=== PATIENT | female | born 1955 | race Caucasian/White ===

== ENCOUNTER 2018-03-25 01:16 | Inpatient (IN) | payer OTHER ==
[~2018-03-25] VITALS: Ht 162.6 cm; Wt 65.8 kg
[~2018-03-25 01:16] MED LIST: ABILIFY30 M1 PO; PANTOPRAZOLE SO40 M1 PO; PEPCID20 M1 PO; PREDNISONE5 M1 PO; PROAIR HFA8.5 GM INH; SEROQUEL200 M1 PO; THEOCHRON300 MG PO
[2018-03-25] MEDS ORDERED: ADVAIR 250-501 EACH INH (06:36)
[2018-03-25] MEDS ORDERED: KLONOPIN1 M1 PO (06:37)
--- NOTE | 2018-03-25 08:57 | Admission Core Measures ---
Acute Coronary Syndrome (CM) ACS Core Measures Acute Coronary Syndrome Diagnosis No Congestive Heart Failure (NEW) CHF Core Measures Congestive Heart Failure Diagnosis No Cerebrovascular Accident (NEW) CVA Core Measures CVA/TIA Diagnosis No Venous Thromboembolism VTE Core Allyssa (View Protocol) VTE Risk Factors Surgery No Mechanical VTE Prophylaxis d/t N/A MechProphylax Ordered No VTE Pharm Prophylaxis d/t NA PharmProphylax ordered Problem List As ranked by this Provider includes Assessment & Plan 1. Unilateral primary osteoarthritis, right hip HOME MEDS Home Med List Albuterol Sulfate (Proair Hfa) 90 MCG HFA.AER.AD 2 PUF INH AD PRN ASTHMA ( Reported) Aripiprazole (Abilify) 30 MG TABLET 1 TAB PO DAILY MENTAL HEALTH (Reported) Clonazepam (Klonopin) 1 MG TABLET 1 TAB PO TWICE DAILY PSYCH (Reported) Famotidine (Pepcid) 20 MG TABLET 1 TAB PO DAILY GI (Reported) Fluticasone/Salmeterol (Advair 250-50 Diskus) 250 MCG-50 MCG/DOSE BLST.W.DEV 1 INH INH DAILY RESPIRATORY (Reported) Pantoprazole Sodium 40 MG TABLET.DR 1 TAB PO DAILY GI (Reported) Prednisone 5 MG TABLET 1 TAB PO DAILY ASTHMA (Reported) Quetiapine Fumarate (Seroquel) 200 MG TABLET 1 TAB PO DAILY MENTAL HEALTH ( Reported) Theophylline Anhydrous (Theochron) 300 MG TAB.ER.12H 1 TAB PO TID ASTHMA ( Reported)
--- NOTE | 2018-03-25 09:01 | Patient Discharge Instructions ---
Discharge Instructions General Discharge Information You were seen/treated for: RIGHT HIP PAIN You had these procedures: RIGHT TOTAL HIP REPLACEMENT Watch for these problems: FEVER OVER 100.4 REDNESS AROUND WOUND DRAINAGE FROM WOUND UNABLE TO BEAR WEIGHT ON RIGHT LEG Call Surgeon to remove: WOUND CHECK No bath, but you may shower: Yes Other wound care: KEEP WOUND CLEAN AND DRY Special Instructions: Follow-up with Dr. Thacker in 6 weeks. Call the office with any concerns of fever greater than 101.5. Large amounts of discharge or drainage from the wound or inability to bear weight on your operative side. The visiting nurse will remove your sutures/percy in approximately 2 weeks' time if applicable You may weight-bear as tolerated. Activity as tolerated. Keep the dressing dry as possible, you may shower with the dressing in place however, do not take a bath or submerge the wound in water as this will increase her chance of infection. Change the dressings after the shower. You may use dry gauze and tape or large Band-Aids Do not apply any ointments to the wound. Due to a risk of blood clots you'll need to be on aspirin 325 mg twice a day for the next 3 weeks. Take pain medication as directed. Apply ice as needed for 20 minutes every hour for the first few days. Please take Colace and/or MiraLAX [id number] to avoid constipation while you're on narcotic pain medication. Diet Continue normal diet: Yes Activity Activity Limited to: Weight bear as tolerated (WITH ROLLING WALKER) Acute Coronary Syndrome Inclusion Criteria At DC or during hospital stay patient has or had the following: ACS DIAGNOSIS No Discharge Core Measures Meds if any: Prescribed or Continued at Discharge Meds if any: NOT Prescribed or Continued at Discharge Congestive Heart Failure Inclusion Criteria At DC or during hospital stay patient has or had the following: CHF DIAGNOSIS No Discharge Core Measures Meds if any: Prescribed or Continued at Discharge Meds if any: NOT Prescribed or Continued at Discharge Cerebrovascular accident Inclusion Criteria At DC or during hospital stay patient has or had the following: CVA/TIA Diagnosis No Discharge Core Measures Meds if any: Prescribed or Continued at Discharge Meds if any: NOT Prescribed or Continued at Discharge Venous thromboembolism Inclusion Criteria VTE Diagnosis No VTE Type NONE VTE Confirmed by (Test) NONE Discharge Core Measures - Per Current guidelines, there needs to be overlap - treatment for the first 5 days of Warfarin therapy. - If discharged on Warfarin prior to 5 days of - overlap therapy, the patient will need to be - assessed for post discharge needs including - *Post discharge parental anticoagulation - *Warfarin and/or parental anticoagulation education - *Follow up date to check INR post discharge At least 5 days overlap therapy as Inpatient No Meds if any: Prescribed or Continued at Discharge Note: Overlap Therapy is Warfarin and Anticoagulant Meds if any: NOT Prescribed or Continued at Discharge
[2018-03-25] MEDS ORDERED: DILAUDID2 M1 PO (09:04)
[2018-03-25] MEDS ORDERED: ASPIRIN EC325 M2 PO (09:04)
[2018-03-25] MEDS ORDERED: COLACE100 M1 PO (09:04)
[2018-03-25] MEDS ORDERED: MIRALAX17 G1 PO (09:04)
--- NOTE | 2018-03-25 09:37 | Surgical Discharge Summary ---
Visit Information Visit Dates Admission Date: 03/25/18 Discharge Date: 03/26/18 History of Present Illness Chief Complaint: RIGHT HIP PAIN Medical History Isolation History: Standard Surgical History Pertinent Surgical History: non-contributory Review of Systems: PER [facility] Hospital Course Course Attending Physician: Andrea Gould MD Primary Care Physician: Ronda Johnson MD Hospital Course: PT PRESENTED TO [facility] ON 03/25/18 FOR ELECTIVE RIGHT TOTAL HIP REPLACEMENT BY DR. GOULD. PT TOLERATED PRECEDURE WELL. POST-OPERATIVELY SHE TOLERATED A REGULAR DIET, WAS VOIDING SPONTANEOUSLY, WAS CLEARED BY PHYSICAL THERAPY AND HER PAIN WAS UNDER CONTROL WITH ORAL MEDICATION. SHE WAS GIVEN PRESCRIPTIONS FOR PAIN, DVT PROPHYLAXIS AND CONSTIPATION. ON DISCHARGE AND WAS INSTRUCTED TO FOLLOW-UP WITH DR GOULD IN 6 WEEKS AND INSTRUCTED TO CALL HIS OFFICE WITH ANY QUESTIONS OR CONCERNS. DISCHARGE INSTRUCTIONS WERE REVIEWED WITH THE PATIENT. Allergies: Coded Allergies: Penicillins (Severe, THROAT ITCHY AND LIPS ITCH AND SWELL, ANAPHYAXIS 03/25/18) morphine (Intermediate, N/V 03/25/18) animal dander (TRIGGERS ASTHMA AND GET SICK 03/22/18) nut - unspecified (ANAPHYLAXIS 03/22/18) tetracycline (ANAPHYLAXIS 03/22/18) Disposition Summary Disposition Principal Diagnosis: RIGHT HIP OA Additional Diagnosis: SP RIGHT DORA Discharge Disposition: home health services Discharge Instructions General Discharge Information Code Status: Full Code Patient's Diet: REGULAR Patient's Activity: WBAT WITH ROLLING WALKER Follow-Up Instructions/Appts: FU WITH DR GOULD IN 6 WEEKS Medications at Discharge Discharge Medications: Continue taking these medications: Theophylline Anhydrous (Theochron) 300 MG TAB.ER.12H 1 Tablet ORAL THREE TIMES DAILY Prednisone (Prednisone) 5 MG TABLET 1 Tablet ORAL DAILY Albuterol Sulfate (Proair Hfa) 90 MCG HFA.AER.AD 2 Puff Inhale through mouth As Directed as needed for ASTHMA Quetiapine Fumarate (Seroquel) 200 MG TABLET 1 Tablet ORAL DAILY Aripiprazole (Abilify) 30 MG TABLET 1 Tablet ORAL DAILY Pantoprazole Sodium (Pantoprazole Sodium) 40 MG TABLET.DR 1 Tablet ORAL DAILY Famotidine (Pepcid) 20 MG TABLET 1 Tablet ORAL DAILY Fluticasone/Salmeterol (Advair 250-50 Diskus) 250 MCG-50 MCG/DOSE BLST.W.DEV 1 Inhalation Inhale through mouth DAILY Clonazepam (Klonopin) 1 MG TABLET 1 Tablet ORAL TWICE DAILY Start taking the following new medications: Hydromorphone HCl (Dilaudid) 2 MG TABLET 1-2 Tablet ORAL EVERY 4-6 HOURS NEEDED as needed for RIGHT HIP PAIN Qty = 36 No Refills Aspirin (Ecotrin*) 325 MG TABLET.DR 1 Tablet ORAL TWICE DAILY Qty = 60 No Refills Docusate Sodium (Colace) 100 MG CAPSULE 1 Capsule ORAL TWICE DAILY Qty = 14 No Refills Instructions: STOP TAKING IF YOU DEVELOP LOOSE STOOL/DIARRHEA Polyethylene Glycol 3350 (Miralax) 17 GRAM POWD.PACK 1 Packet ORAL DAILY Qty = 7 No Refills Instructions: dissolve in water. STOP TAKING IF YOU DEVELOP LOOSE STOOL/DIARRHEA Copies To: Alex CHENG,Ronda Mishra
--- NOTE | 2018-03-25 10:38 | RADIOLOGY REPORT ---
EXAMINATION: XR HIP, RIGHT CLINICAL INFORMATION: In PACU. Right hip arthroplasty. COMPARISON: None TECHNIQUE: Two views of the right hip. FINDINGS: Right hip arthroplasty hardware is demonstrated, with the prosthetic femoral head well situated over the acetabular component. No acute fracture or dislocation. Postsurgical soft tissue changes about the right hip. IMPRESSION: Status post right hip arthroplasty without immediate postprocedural complication demonstrated.
[2018-03-25 11:30] VITALS: BP 110/70
--- NOTE | 2018-03-25 12:08 | PN- Orthopedic ---
Subjective Subjective: POC S/P RIGHT DORA NO MAJOR COMPLAINTS DENEIS CP, SOB, NO N+V RESTING COMFORTABLY IN BED NOW AWAITING PT Objective Vital Signs and I&Os Intake & Output 03/25 0800 03/25 0000 03/24 0803/24 0000 Intake Total Output Total Balance Patient 143 lb Weight Physical Exam: CV: RRR LUNGS: CLEAR ABD: SOFT, +BS EXT: RIGHT THIGH SOFT DISTAL CMS INTACT DRSG DRY Assessment/Plan Assessment/Plan ORTHO STABLE PLAN OOB WTH PT THIS AFTERNOON ASA FOR DVT PROPHYLAXIS TITRATE PAIN MEDS ADVANCE DIET HOME D/C PLANNING Core Measures Venous Thromboembolism VTE Risk Factors Surgery No Mechanical VTE Prophylaxis d/t N/A MechProphylax Ordered No VTE Pharm Prophylaxis d/t NA PharmProphylax ordered
[2018-03-25 14:03] VITALS: BP 124/74
--- NOTE | 2018-03-25 14:40 | Operative Report ---
Operative/Inv Procedure Report Surgery Date: 03/25/18 Name of Procedure: Right total hip replacement Pre-Operative Diagnosis: Primary right hip DJD Post-Operative Diagnosis: Same Estimated Blood Loss: 250 Surgeon/Traffic Signal Technician: Kirstie CHENG,Andrea Bahena Anesthesia: block Operative/Procedure Note Note: Description of Procedure: The patient was taken to the operating room and positively identified. After induction of spinal anesthesia and administration of appropriate pre-operative antibiotics, the patient was positioned supine on the operating room table and all bony prominences were well padded. After performing a surgical timeout, the right lower extremity was prepped and draped in the usual sterile fashion. A direct anterior approach was made to the right hip. The incision was carried sharply through superficial soft tissues to the level of the fascia. Meticulous hemostasis was maintained with Bovie electocautery. The fascia over the tensor fascia brandy muscle was opened sharply and the interval between the TFL and the sartorius was entered bluntly taking care to stay lateral to the lateral femoral cutaneous nerve. Retractors were placed around the femoral neck and the pericapsular fat was identified. The ascending branches of the lateral femoral circumflex vessels were identified and carefully coagulated. The pericapsular fat and anterior capsule were then resected. A napkin ring osteotomy was performed and the femoral head was removed without difficulty. Attention was then turned to the acetabulum. After appropriate placement of retractors, the acetabulum was exposed. Soft tissue was cleaned from the acetabular margin and notch. Overhanging osteophytes were removed and the teardrop was exposed. The acetabulum was then sequentially reamed to accept a 52 mm Joseph Tritanium hemispherical solid shell. This was impacted into place in the appropriate position and fitted with a 32 mm Trident X3 zero degree polyethylene insert. Attention was then turned to the femur. After performing the appropriate ligament releases, the proximal femur was exposed. It was then sequentially broached to accept a size 2 Joseph Accolade 2 stem. This was trialed for leg length and stability. The trial component was removed and the final component was impacted into place. The trunnion was carefully cleaned and fit with a 32 mm, +4 Biolox delta ceramic femoral head. The hip was reduced and put through a full range of motion and found to be stable. The articular space was then irrigated with sterile saline. The periarticular soft tissues were infilitrated with Marcaine. The fascial layer was closed with interrupted #1 vicryl suture and the skin was re-approximated with interrupted 2 -0 vicryl. The skin was closed with a running 3-0 V-Lock suture. Steri-strips and a sterile dressing were applied. The patient was awakened and taken to the recovery room in satisfactory condition.
[2018-03-25 15:30] VITALS: BP 122/60
[2018-03-25 17:36] VITALS: BP 118/60
[2018-03-25 21:38] VITALS: BP 130/80
[2018-03-26 01:49] VITALS: BP 120/70
[2018-03-26 06:18] VITALS: BP 125/73
--- NOTE | 2018-03-26 07:25 | PN- Orthopedic ---
Subjective Subjective: Patient feels well, pain maximum about a 6 out of 10 in the right hip. She has been up and ambulatory and voiding spontaneously without difficulty. She is in good spirits and wishes to be discharged home today Objective Vital Signs and I&Os Vital Signs Date Time Temp Pulse Resp B/P B/P Pulse O2 O2 Flow FiO2 Mean Ox Delivery Rate 03/26 0618 97.3 72 18 125/73 98 Room Air 03/26 0149 97.7 75 20 120/70 8 Room Air 03/25 2138 98.7 75 20 130/80 97 Room Air 03/25 1736 97.5 75 20 118/60 96 Room Air 03/25 1533 Room Air 03/25 1530 98.1 78 20 122/60 95 Room Air 03/25 1403 98.1 74 20 124/74 95 03/25 1240 Room Air 03/25 1130 98.0 64 110/70 Intake & Output 03/26 0800 03/26 0000 03/25 1600 03/25 0800 03/25 0000 03/24 1600 Intake Total 400 465 Output Total Balance 400 465 Intake, IV 300 225 Intake, Oral 100 240 Patient 145 lb 145 lb Weight Weight Reported by Patient Measurement Method Physical Exam: Well-developed well-nourished no apparent distress. HEENT: Atraumatic, extraocular motion intact Neck: Supple, no lymphadenopathy Respiratory: No respiratory distress Extremities: No edema RIGHT lower extremity hip dressing in place, Dressing clean dry and intact Mild thigh swelling and proximal area ecchymosis No signs of infection. No shortening or rotation Hip range of motion is limited and without unexpected pain Neurovascularly intact distally Bilateral calves are supple, nontender. Neuro: Alert and oriented x3 Psych: Mood affect normal, normal memory normal judgment. Skin: Warm and dry, no rash on exposed skin Results Last 48 Hours of Labs: Laboratory Tests 03/26 0714 Chemistry Sodium Pending Potassium Pending Chloride Pending Carbon Dioxide Pending Anion Gap Pending BUN Pending Creatinine Pending BUN/Creatinine Ratio Pending Hematology CBC w Diff Pending WBC Pending RBC Pending Hgb Pending Hct Pending MCV Pending MCH Pending MCHC Pending RDW Pending Plt Count Pending MPV Pending Assessment/Plan Assessment/Plan Postop day #1 status post right total hip arthroplasty anterior approach Perioperative antibiotics. Pain medication as needed. Out of bed Physical therapy, weightbearing as tolerated DC IV fluids Regular diet Follow a.m. labs Aspirin for DVT prophylaxis ALPS for DVT prophylaxis Regular home meds Dressing change postop day 2 Anticipate discharge home today with [facility] services if labs acceptable and clears physical therapy Core Measures Venous Thromboembolism VTE Risk Factors Surgery No Mechanical VTE Prophylaxis d/t N/A MechProphylax Ordered No VTE Pharm Prophylaxis d/t NA PharmProphylax ordered
[2018-03-26 08:01] LABS: ABSOLUTE BASOPHIL COUNT 0 /CUMM (0.0-0.2); ABSOLUTE EOSINOPHIL COUNT 0.1 /CUMM (0.0-0.7); ABSOLUTE GRANULOCYTE CT 7.8 /CUMM (1.4-6.5); ABSOLUTE LYMPH COUNT 2.5 /CUMM (1.2-3.4); ABSOLUTE MONOCYTE COUNT 1.3 /CUMM (0.10-0.60); BASOPHIL % 0.3 % (0.0-2.0); EOSINOPHIL % 0.5 % (0-5); GRANULOCYTE % 66.7 % (42.2-75.2); HEMATOCRIT 39.6 % (37-47); MEAN CORPUSCULAR HGB 31.2 PG (27.0-31.0); MEAN CORPUSCULAR HGB CONC 34.5 G/DL (33.0-37.0); MEAN CORPUSCULAR VOLUME 90.6 FL (81.0-99.0); MEAN PLATELET VOLUME 9.4 FL (7.4-10.4); PLATELET COUNT 173 /CUMM (130-400); RBC DISTRIBUTION WIDTH 14.1 % (11.5-14.5); RED BLOOD CELL CT 4.37 /CUMM (4.20-5.40); WHITE BLOOD CELL COUNT 11.8 /CUMM (4.8-10.8)
== END 2018-03-26 11:30 | disposition home health service (06) | DRG 470 ==
LOC: SDA 01:16 → ENRESERV 10:23 → ENTRNSPT 11:00 → EDTRNSPTSTS 11:15 → EDTRNSPT 11:15 → 2NA 11:20 → CMPTRNSPT 11:36 → ENPENDDIS 03-26 07:37 → ENTRNSPT 03-26 11:07 → EDTRNSPT 03-26 11:19 → EDTRNSPTSTS 03-26 11:19 → 2NA 03-26 11:30 → CMPTRNSPT 03-26 11:47
PROVIDERS: Physician Assistant Surgical
PROC: 0SR90JA Replacement of Right Hip Joint with Synthetic Substitute, Uncemented, Open Approach (ICD-10-PCS; principal; 2018-03-25)
DX: M16.11 Unilateral primary osteoarthritis, right hip (principal); I10 Essential (primary) hypertension; J44.9 Chronic obstructive pulmonary disease, unspecified; Z79.51 Long term (current) use of inhaled steroids; Z79.52 Long term (current) use of systemic steroids; K21.9 Gastro-esophageal reflux disease without esophagitis; Z88.0 Allergy status to penicillin
CPT/HCPCS: 2NASP; 36592; 73502-RT; 82436; 97112-GO; 97116-GO; 97161-GP; 97530-GO; J0131; J0735; J1100; J2405; J3370; J3490; J7040; J7042; J7512